=== PATIENT | female | born 1990 | race Caucasian/White ===

== ENCOUNTER 2024-03-28 06:42 | Inpatient (IN) | payer OTHER ==
[~2024-03-28] VITALS: Ht 160 cm; Wt 69.9 kg
[2024-03-28] MEDS ORDERED: RINGERS SOLUTION,LACTATED 1,000 ML IV SCH ×2 (06:45→22:45)
[2024-03-28 07:30] VITALS: BP 124/85
[2024-03-28] MEDS ORDERED: OXYTOCIN 500 ML IV SCH (07:45)
[2024-03-28 08:29] LABS: HEMATOCRIT 32.8 % (36.0-45.00); HEMOGLOBIN 11.3 g/dL (12.0-15.00); MEAN CELL VOLUME 92.9 fL (80.00-100.00); MEAN CORPUSCULAR HEMOGLOBIN 31.9 pg (27.00-32.0); MEAN CORPUSCULAR HGB CONC 34.4 g/dl (32.0-36.0); PLATELET COUNT 184 K/uL (150-450); RED BLOOD COUNT 3.53 M/uL (4.00-6.00); RED CELL DISTRIBUTION WIDTH 13.1 % (11.5-14.5)
[2024-03-28] MEDS ORDERED: PRENATAL TABLE1 EAC1 PO (08:49)
[2024-03-28 08:50] LABS: INR < 0.93; PARTIAL THROMBOPLASTIN TIME 27.2 SECONDS (22.0-34.0); PROTHROMBIN TIME 9.8 SECONDS (9.0-11.5)
[2024-03-28 08:53] LABS: URINE APPEARANCE Clear; URINE BILIRRUBIN Negative (NEGATIVE); URINE BLOOD Negative; URINE COLOR Yellow; URINE GLUCOSE Negative (NEGATIVE); URINE KETONE Negative (NEGATIVE); URINE LEUKOCYTE Small; URINE NITRATE Negative; URINE PROTEIN Negative (NEGATIVE)
[2024-03-28 08:59] LABS: URINE BACTERIA 2329.2 uL (0.0-1933); URINE EPITHELIAL CELLS 72.3 uL (0.0-38.8); URINE WBC 45.7 uL (0.0-23.2)
[2024-03-28 09:33] LABS: URINE CAST 0.14 uL (0.0-1.40); URINE RBC 1.3 uL (0.0-20.8)
[2024-03-28 09:35] LABS: ALBUMIN 2.6 gm/dL (3.4-5.0); BILIRUBIN TOTAL 0.33 mg/dL (0.3-1.2); CALCIUM 8.5 mg/dL (8.5-10.1); CREATININE SERUM 0.46 mg/dL (0.55-1.02); GFR 158.44; GLOBULINA 3.1 G/DL (2.4-3.5); POTASSIUM 3.87 mEq/L (3.5-5.1); TOTAL PROTEIN 5.7 gm/dL (6.4-8.2)
[2024-03-28 11:25] VITALS: BP 110/78
[2024-03-28] MEDS ORDERED: PROMETHAZINE HCL 25 MG/ML AMPUL IV ONE ×2 (13:30→16:15)
[2024-03-28] MEDS ORDERED: MEPERIDINE HCL/PF 50 MG/ML VIAL IV ONE (13:30)
[2024-03-28] MEDS ORDERED: PROMETHAZINE HCL 25 MG/ML AMPUL ONE ×2 (13:37→16:08)
[2024-03-28 15:37] VITALS: BP 121/81
[2024-03-28] MEDS ORDERED: MEPERIDINE HCL/PF 25 MG/ML VIAL IV ONE (16:15)
[2024-03-28] MEDS ORDERED: ERYTHROMYCIN BASE OPHT 1GM EACH TUBE OP ONE ×3 (18:44→22:45)
[2024-03-28] MEDS ORDERED: OXYTOCIN 20 UNITS/1000ML RL PIGGYBAG IV ONE (18:44)
[2024-03-28] MEDS ORDERED: LIDOCAINE HCL 1% 10ML VIAL ONE (18:44)
[2024-03-28] MEDS ORDERED: CHLORHEXIDINE GLUCONATE 120 ML BOTTLE TOP ONE ×2 (18:44→22:45)
[2024-03-28 19:30] VITALS: BP 139/91
[2024-03-28] MEDS ORDERED: CEFAZOLIN SODIUM 1,000 MG VIAL ONE (21:41)
[2024-03-28] MEDS ORDERED: OXYTOCIN 10 UNITS/ML VIAL ONE (21:46)
[2024-03-28] MEDS ORDERED: CEFAZOLIN SODIUM 1,000 MG VIAL IV STA (21:56)
[2024-03-28] MEDS ORDERED: SIMETHICONE 125 MG CAPSULE PO SCH (22:43)
[2024-03-28] MEDS ORDERED: OXYTOCIN 1,000 ML IV SCH (22:45)
[2024-03-29] MEDS ORDERED: PROMETHAZINE HCL 50 MG/ML AMPUL IV SCH
[2024-03-29] MEDS ORDERED: MEPERIDINE HCL/PF 50 MG/ML VIAL IV SCH
[2024-03-29] MEDS ORDERED: PROMETHAZINE HCL 50 MG/ML AMPUL IM ONE (02:45)
[2024-03-29] MEDS ORDERED: OXYTOCIN 10 UNITS/ML VIAL ONE (04:09)
[2024-03-29 04:47] VITALS: BP 116/74
[2024-03-29 06:16] LABS: HEMATOCRIT 29.2 % (36.0-45.00); MEAN CELL VOLUME 92.7 fL (80.00-100.00); MEAN CORPUSCULAR HEMOGLOBIN 31.6 pg (27.00-32.0); MEAN CORPUSCULAR HGB CONC 34.1 g/dl (32.0-36.0); PLATELET COUNT 204 K/uL (150-450); RED BLOOD COUNT 3.16 M/uL (4.00-6.00); RED CELL DISTRIBUTION WIDTH 13.3 % (11.5-14.5)
[2024-03-29 08:00] VITALS: BP 129/80
[2024-03-29] MEDS ORDERED: NAPROXEN 500 MG TABLET PO SCH (09:00)
[2024-03-29] MEDS ORDERED: ACETAMINOPHEN WITH CODEINE 1 UDTAB TABLET PO PRN (09:15)
[2024-03-29 15:02] VITALS: BP 119/82
[2024-03-30 00:26] VITALS: BP 106/69
[2024-03-30 08:21] VITALS: BP 121/86
[2024-03-30 17:25] VITALS: BP 120/79
[2024-03-30 23:56] VITALS: BP 125/82
== END 2024-03-31 14:07 | disposition home or self-care (01) | DRG 788 ==
LOC: LDR 06:42 → OB/GYN 06:42 → LDR 06:51 → OB/GYN 03-29 02:55
PROVIDERS: ADMIT Obstetrics & Gynecology; ATTEND Obstetrics & Gynecology
PROC: 4A1HXCZ Monitoring of Products of Conception, Cardiac Rate, External Approach (ICD-10-PCS; 2024-03-28)
PROC: 10D00Z1 Extraction of Products of Conception, Low, Open Approach (ICD-10-PCS; principal; 2024-03-28 22:45)
DX: O75.81 Maternal exhaustion complicating labor and delivery (principal); Z3A.38 38 weeks gestation of pregnancy; Z37.0 Single live birth

== ENCOUNTER 2024-12-17 01:05 | Emergency (ER) | payer OTHER ==
[~2024-12-17] VITALS: Ht 160 cm; Wt 59.0 kg
[~2024-12-17 01:05] MED LIST: PRENATAL TABLE1 EAC1 PO
[2024-12-17] MEDS ORDERED: KETOROLAC TROMETHAMINE 30 MG VIAL IM ONE (02:30)
[2024-12-17] MEDS ORDERED: KETOROLAC TROMETHAMINE 30 MG VIAL ONE (02:36)
[2024-12-17 03:33] LABS: BASO % 0.3 % (0.1-1.2); EOS # 0.01 (0.04-0.54); EOS % 0.1 % (0.7-7.0); LYMPH # 1.13 (1.18-3.74); LYMPH % 10.2 % (19.3-53.1); MEAN PLATELET VOLUME 9.70 fl (9.4-12.4); MONO # 0.43 (0.24-0.82); MONO % 3.9 % (4.7-12.5); NEUT # 9.41 (1.56-6.13); NEUT % 85.1 % (34.0-71.1); RED CELL DISTRIBUTION WIDTH 12.7 % (11.6-14.4)
[2024-12-17 04:03] LABS: ALT/SGPT 25 U/L (12-78); AST/SGOT 17 U/L (15-37); BILIRUBIN TOTAL 0.47 mg/dL (0.3-1.2); BUN CREA RATIO 23 (7.0-25.0); CREATININE SERUM 0.80 mg/dL (0.55-1.02); GFR 83.12; GLOBULINA 2.8 G/DL (2.4-3.5); GLUCOSE FASTING 125 mg/dL (65-100); OSMOLALITY SERUM 286 MOSM/KG (275-295)
[2024-12-17] MEDS ORDERED: CEFUROXIME500 MG PO (04:15)
[2024-12-17] MEDS ORDERED: PEPCID AC20 MG PO (04:15)
[2024-12-17 04:24] LABS: HCG QUANTITATIVE < 1 mUI/mL (1-3)
[2024-12-17 05:25] LABS: URINE APPEARANCE Clear; URINE BILIRRUBIN Negative (NEGATIVE); URINE BLOOD Negative; URINE COLOR Dark Yellow; URINE GLUCOSE Negative (NEGATIVE); URINE KETONE 15 (NEGATIVE); URINE LEUKOCYTE Negative; URINE NITRATE Negative; URINE PROTEIN Trace (NEGATIVE); URINE UROBILINOGEN 0.2 E.U./dl
[2024-12-17 05:29] LABS: URINE BACTERIA 177.5 uL (0.0-1933); URINE EPITHELIAL CELLS 41.2 uL (0.0-38.8); URINE RBC 39.0 uL (0.0-20.8); URINE WBC 29.3 uL (0.0-23.2)
[2024-12-17 05:48] LABS: URINE CAST 0.00 uL (0.0-1.40)
[2024-12-17 05:50] LABS: URINE CRYSTALS MANY /HPF
== END 2024-12-17 04:28 | disposition home or self-care (01) ==
LOC: ER 01:05
PROVIDERS: General Practice
DX: R10.A1 Flank pain, right side (principal); R11.0 Nausea; N20.1 Calculus of ureter